=== PATIENT | male | born 1945 | race African-American/Black ===

== ENCOUNTER 2022-01-09 09:51 | Outpatient (REF) | payer MEDICARE, SELFPAY ==
[2022-01-09 15:27] LABS: Vitamin B12 774 pg/mL (200-900)
== END 2022-01-09 09:52 | disposition home or self-care (01) ==
LOC: HO.LAB 09:51
PROVIDERS: Visit Provider Psychiatry & Neurology Neurology
DX: G31.84 Mild cognitive impairment of uncertain or unknown etiology (principal)
CPT/HCPCS: 36415; 82607

== ENCOUNTER 2024-12-25 09:16 | Outpatient (AMB) | payer MEDICARE, SELFPAY ==
--- NOTE | 2024-12-25 09:18 | MHC.OFFVIS ---
Intake Visit Reasons: 6m BFT Allergies No Known Allergies Allergy (Verified 12/25/24 09:21) Medication List - Last Reconciled 12/25/24 by Evy Grimaldo CNP glipizide 10 mg PO BID losartan 100 mg PO DAILY metformin 1,000 mg PO BID pioglitazone 30 mg PO DAILY primidone 50 mg PO DAILY 90 days HPI Comments Details: 79-year-old man with DM, HTN, mild hand tremor, and mild cognitive impairment. He was doing okay. Tremor was okay with primidone. He could tell if he missed dose. No functional impairment. No difficulty eating, drinking, or swallowing. No falls. Memory was about the same. Sleep was okay. Mood was okay. [facility] Medical History (Updated 12/25/24 @ 09:21 by Evy Grimaldo CNP) Hyperlipidemia Hypertension Insomnia Diabetes mellitus MCI (mild cognitive impairment) Benign essential tremor Review of Systems Const Denies chills, Denies daytime sleepiness, Denies difficulty sleeping, Denies fatigue, Denies fever(s), Denies frequent falls, Denies headache(s), Denies increased appetite, Denies poor appetite, Denies snoring, Denies weakness, Denies weight gain and Denies weight loss Eyes Denies loss of vision ENT Denies vertigo, Denies dizziness and Denies headache(s) Card Denies chest pain at rest, Denies chest pain with activity, Denies syncope, Denies leg edema and Denies palpitations Resp Denies snoring GI Denies constipation, Denies heartburn, Denies diarrhea and Denies nausea Denies urinary frequency, Denies urinary incontinence and Denies urinary urgency Musc Denies abnormal gait, Denies numbness and Denies tingling Skin/Breast Denies dry skin and Denies rash Neuro Denies abnormal gait, Denies vertigo, Denies dizziness, Denies syncope, Denies frequent falls, Denies headache(s), Denies lack of coordination, Denies loss of vision, Denies memory loss, Denies numbness, Denies restless legs, Denies seizure-like activity, Denies tingling, Denies paresthesias, Reports tremor(s) and Denies weakness Psych Denies anxiety, Denies depression, Denies auditory hallucinations, Denies memory loss, Denies visual hallucinations and Denies suicidal ideation Endo Denies fatigue and Denies palpitations Physical Exam Const Other: General Appearance:? normal, in no acute distress. Skin:? no rashes, no significant birthmarks. Heart:? S1, S2 normal, no murmurs. Lungs:? clear anteriorly and posteriorly. Extremities:? no edema. Psych:? alert, oriented, cognitive function intact, cooperative with exam. Neuro Other: Mental Status:?Normal attention, orientation, memory and affect.? Cranial Nerves:?Pupils are equal, round and reactive to light. External occular muscles are intact. Visual dockery are full. Face is symmetrical. Facial sensations are normal. Tongue is midline. Palate elevates symmetrically. Shoulder shrugging is normal. Hearing to bedside conversation is normal. Sensory Exam:?....? Coordination:?No ataxia,?no titubation.? Gait Exam: Within normal limits. Cerebellar Signs:?[id number] is okay. Extrapyramidal System:?No tremor, rigidity with normal facial expressions.? Pronator Drift:?Not present.? Involuntary Movements:?No tremors seen.? Speech:?Normal.? Assessment & Plan Assessment & Plan (1) Tremor: Code(s): R25.1 - Tremor, unspecified Category: Medical Plan: Continue primidone 50mg 1 tablet at bedtime. (2) MCI (mild cognitive impairment): Code(s): G31.84 - Mild cognitive impairment of uncertain or unknown etiology Category: Medical Plan: Stay physically and socially active. Medications: Changed From primidone 50 mg PO DAILY 90 days 90 tabs 1RF To primidone 50 mg PO BEDTIME 90 tabs 1RF 90 days Coding Level of Care Code Est Pt Level 4 (95054) Diagnoses Tremor R25.1 MCI (mild cognitive impairment) G31.84
--- OUTSIDE RECORDS SUMMARY | 2024-12-25 10:01 | XMS_ITS | Clinical Summary ---
Author Organization [address] Address [address] [place] [phone] Phone Care Team Providers Care Butcher Supervisor Name Role Phone Quyen Espino MD Primary Care Prov ider Allergies Active Allergy Reactions Criticality Noted Date Comments Lisinopril Swelling 01/31/2012 angioedema Medications primidone (MYSOLINE) 50 mg tablet Take 50 mg by mouth daily. 06/24/2021 Active metFORMIN (GLUCOPHAGE) 500 mg tablet TAKE 2 TABLETS BY MOUTH TWICE DAILY WITH MEALS 360 tablet 1 07/20/2024 Active blood sugar diagnostic (Accu-Chek Mala Plus test strp) test strip TEST ONCE OR TWICE A DAY 200 strip 2 08/24/2024 Active Accu-Chek Softclix Lancets Use to check blood sugars once daily 100 each 08/27/2024 Active glipiZIDE (GLUCOTROL) 10 mg tablet TAKE 1 TABLET BY MOUTH TWICE DAILY WITH FOOD 180 tablet 1 10/23/2024 Active losartan (COZAAR) 100 mg tablet TAKE 1 TABLET BY MOUTH DAILY 90 tablet 1 11/09/2024 Active Active Problems Problem Noted Date Diagnosed Date Prostate cancer ([facility] V24, [facility] V28) 11/20 Overview (11/21/2023): s/p robotic radical prostatectomy 01/17, sees Dr. 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 Patient will continue with yearly Podiatric and Ophthomologic evaluations. Will continue Angiotensin Converting Enzyme Inhibitor for renal protection. Continue Metformin, Glipizide, and Actos. Will contact the patient with results of his new A1C and we will recheck a hemoglobin A1c, before his next visit. Patient will follow up in 4 months. Orders: Comprehensive metabolic panel; Future Hemoglobin A1c; Future Lipid panel with reflex to direct LDL; Future Microalbumin creatinine urine ratio; Future PPD positive, treated 09/25/2010 Hyperlipidemia with target LDL less than 100 Overview (11/21/2023): IMO update Assessment & Plan (05/05/2024 8:29 AM EDT): Assessment & Plan (01/01/2024 9:18 AM EST): Given the patients cardiac risk profile, the patient requires an LDL cholesterol of less than 70. I have instructed the patient on the principles of a low cholesterol diet and the importance of regular exercise. We will check a cholesterol profile and liver function tests before the next visit Orders: Comprehensive metabolic panel; Future Hemoglobin A1c; Future Lipid panel with reflex to direct LDL; Future Microalbumin creatinine urine ratio; Future HTN (hypertension), benign 04/28/2010 Assessment & Plan (05/05/2024 8:29 AM EDT): Assessment & Plan (01/01/2024 9:18 AM EST): The patient's antihypertensive regimen is based on their underlying medical issues. At the time of this visit, the blood pressure is well controlled on Losartan. The patient is instructed to follow a low sodium diet and to follow up in 4 months. Orders: Comprehensive metabolic panel; Future Hemoglobin A1c; Future Lipid panel with reflex to direct LDL; Future Microalbumin creatinine urine ratio; Future Rotator cuff tear 08/24/2009 Impingement syndrome of shoulder 04/17/2009 Overview (11/21/2023): Left shoulder 2009 - Subacromial osteophyte; pending MRI; seeing Mr. Schmitt Anterior subcapsular polar senile cataract 04/12 Overview (11/21/2023): Anterior subcapsular polar cataract Erectile dysfunction 11/11/2007 Helicobacter pylori infection 06/18/2005 Overview (11/21/2023): IMO update Esophageal reflux 03/14/2005 Overview (11/21/2023): Normal upper GI endoscopy on PPI medications 9.19.06. Cervicalgia 03/14/2005 Encounters Date Type Department Care Team Description 10/07/2024 8:30 AM EDT Office Visit Adult Medicine [address] [phone] Natalie Tucker PA Type 2 diabetes mellitus with diabetic cataract, without long-term current use of insulin ([facility] V24, [facility] V28) (Primary Dx); HTN (hypertension), benign; Hyperlipidemia with target LDL less than 100; Overweight (BMI 25.0-29.9) from Last 3 Months Immunizations Immunization Administration Dates Next Due PPD Test 09/22/2010 [employer] SARS-CoV-2 COVID-19, mRNA, LNP-S, preservative free 06/25/2020,05/25/2020 Pneumococcal conjugate 13 va lent (Prevnar 13, PCV13) 2mo and older 03/04/2015 Pneumococcal polysaccharide 23 valent (Pneumovax 23) 2yo and older 02/28/2012 Td Tetanus diptheria (Tdvax) 7yo and older 12/09 Tdap Tetanus diptheria acell ular pertussis (Boostrix; Adacel) 7yo and older 11/11/2007 Zoster Live 11/07/2012 Zoster recombinant (Shingrix) 19yo and older ,10/16/2022 Surgical History Surgery Date Site/Laterality Comments OTHER SURGICAL HISTORY PROCEDURE: DC PROSTECT RETROPUBIC RAD W/WO NRV SPAR W/LYMPH BX HERNIA REPAIR PROCEDURE: HISTORICAL HERNIA REPAIR/ING COLONOSCOPY 2013 PROCEDURE: DC COLONOSCOPY FLX DX W/COLLJ SPEC WHEN PFRMD; COMMENT: normal OTHER SURGICAL HISTORY 04/2015 Left PROCEDURE: DC ANES ARTHROSCOPIC TOTAL SHOULDER REPLACEMENT CATARACT EXTRACTION Right PROCEDURE: HISTORICAL CATARACT REMOVAL Medical History Medical History Date Comments Cervicalgia 03/14/2005 DX:Cervicalgia History of prostate cancer DX:Wv story of prostate cancer; COMMENT: s/p RRP 01/17, Dr. Obrien Type II or unspecified type diabetes mellitus with unspecified complication, not stated as uncontrolled DX:Type II or unspecified ty pe diabetes mellitus with unspecified complication, not stated as uncontrolled Esophageal reflux DX:Esophageal reflux HTN (hypertension), benign 04/28/2010 DX:HT N (hypertension), benign Family History Medical History Relation Name Comments No Known Problems Aunt Prostate cancer Brother 2 brothers a nd self No Known Problems Father No Known Problems Maternal Grandfather No Known Problems Maternal Grandmother No Known Problems Mother No Known Problems Other No Known Problems Paternal Grandfather No Known Problems Paternal Grandmother Breast cancer Sister 50s, b/l No Known Problems Uncle Blindness Neg Hx Cataracts Neg Hx Glaucoma Neg Hx Macular degeneration Neg Hx Strabismus Neg Hx Relation Name Status Comments Aunt Brother Father Maternal Grandfather Maternal Grandmother Mother at age 101dm, Other Paternal Grandfather Paternal Grandmother Sister Uncle Social History Tobacco Use Types Packs/Day Years Used Date Smoking Tobacco: Never Smokeless Tobacco: Never Tobacco Cessation:Counseling Given: Not Answered Alcohol Use Standard Drinks/Week Comments No 0 (1 standard drink = 0.6 oz pur e alcohol) Housing Instability Answer Date Recorde d Are you worried that in the next 2 months you may not have stable housing? No 01/01/2024 Food Access & Nutrition Answer Date Rec orded Do you have access to a vari ety of food including fruits and vegetables? Yes 01/01/2024 Access to Healthcare Answer Date Record ed Within the last 3 months, ho w many times did you visit the emergency department for your medical care? 0 01/01/2024 Financial Risk Answer Date Recorded How hard is it for you to pa y for the very basics like food, housing, medical care, and air conditioning / heating? Somewhat hard 01/01/2024 Transportation Answer Date Recorded Has the lack of transportati on kept you from meetings, work, or from getting things needed for daily living? No Has the lack of transportati on kept you from medical appointments or from getting medications? No 01/01/2024 Social Isolation Answer Date Recorded How often do you feel lonely or isolated from th ose around you? Never 01/01/2024 Food Risk Answer Date Recorded Within the past 12 months we worried whether our food would run out before we got money to buy more. Never true 01/01/2024 Within the past 12 months th e food we bought just didn't last and we didn't have money to get more. Never true 01/01/2024 Dependent Care Answer Date Recorded Do you need help finding or paying for care for your loved ones. For example, child welfare consultant or elderly care for an older adult? No 01/01/2024 Education Answer Date Recorded Do you think completing more education or training, like finishing a GED, going to college, or learning a trade, would be helpful for you? No 01/01/2024 Employment and Income Answer Date Recor ded During the last four weeks, have you been actively looking for work? No 01/01/2024 Living Situation Answer Date Recorded What is your living situation? Unrecognized valu e 01/01/2024 Sex and Gender Information Value Date Recorded Sex Assigned at Not on file Legal Sex Male 8:25 PM EST Gender Identity Not on file Sexual Orientation Not on file Obstetrics History Last Filed Vital Signs Vital Sign Reading Time Taken Comments Blood Pressure 138/66 10/07/2024 8:29 AM EDT Pulse 69 10/07/2024 8:29 AM EDT Temperature 36 C (96.8 F) 10/07/2024 8:29 AM EDT Respiratory Rate 16 10/07/2024 8:29 AM EDT Oxygen Saturation 98% 10/07/2024 8:29 AM EDT Inhaled Oxygen Concentration - - Weight 73 kg (161 lb) 10/07/2024 8:29 AM EDT Height 167.6 cm (5' 6 ) 10/07/2024 8:29 AM EDT Body Mass Index 25.99 10/07/2024 8:29 AM EDT Plan of Treatment Upcoming Encounters Date Type Department Care Team (Late st Contact Info) Description 01/12/2025 9:30 AM EST Office Visit Adult Medicine [facility] [address] [place], [place] [phone] Natalie Tucker PA [address] [place], [place] Health Maintenance Due Date Last Done Comments RSV Immunization Adult Patients (1 - 1-dose 75+ series) 2021 COVID-19 Vaccine ( season) 2024 01/16/2021, 06/25/2020, 05/25/2020, Additional history exists Diabetes: Annual Retina Eye Exam 12/19/2024 12/20/2023 Diabetes: Annual Urine Albumin-Creatinine Ratio (uACR) 12/30/2024 12/31/2023, 07/13/2022 Social Influencers of Health Screening 12/31/2024 01/01/2024 Diabetes: Blood Sugar Control Test (HGBA1C) 04/07/2025 10/05/2024, 05/04/2024, 12/31/2023, Additional history exists Diabetes: Annual GFR (Glomerular Filtration Rate) 05/04/2025 05/04/2024, 05/21/2023 Hypertension/CHF/CAD Annual BMP Blood Test 05/04/2025 05/04/2024, 05/21/2023 Falls Risk Assessment 05/05/2025 05/05/2024, 024 Medicare Annual Wellness Visit 05/05/2025 05/05/2024 Diabetes: Annual Foot Exam 10/07/2025 10/07/2024, DTaP,Tdap,and Td Vaccines (3 - Td or Tdap) 12/10/2027 12/09/2017, 11/11/2007 Cholesterol Screening (Lipid Panel) 05/04/2029 05/04/2024, 05/21/2023 Hepatitis C Screening Completed 11/03/2012 Pneumococcal Vaccine: 50+ Years Completed 03/04/2015, 02/28/2012 Zoster Vaccines Completed 01/07/2023, 06/2022, 11/07/2012 Depression Screening Completed 05/05/2024, 02/12/19 24 HIB Vaccines Aged Out No longer eligi ble based on patient's age to complete this topic HPV Vaccines Aged Out No longer eligi ble based on patient's age to complete this topic Hepatitis A Vaccines Aged Out No long er eligible based on patient's age to complete this topic Hepatitis B Vaccines Aged Out No long er eligible based on patient's age to complete this topic IPV Vaccines Aged Out No longer eligi ble based on patient's age to complete this topic Influenza Vaccine Discontinued MMR Vaccines Aged Out No longer eligi ble based on patient's age to complete this topic Meningococcal ACWY Vaccine Aged Out N o longer eligible based on patient's age to complete this topic Meningococcal B Vaccine Aged Out No l onger eligible based on patient's age to complete this topic RSV Immunization Patients Under 20 months Aged Out No longer eligible based on patient's age to complete this topic Varicella Vaccines Aged Out No longer eligible based on patient's age to complete this topic Procedures Procedure Name Priority Date/Time Associated Diagnosis Comments HEMOGLOBIN A1C Routine 10/05/2024 8:56 AM EDT Type 2 diabetes mellitus with diabetic cataract, without long-term current use of insulin ([facility] V24, [facility] V28) COMPREHENSIVE METABOLIC PANEL Routine 05/04/2024 9:07 AM EDT Type 2 diabetes mellitus with diabetic cataract, without long-term current use of insulin ([facility] V24, [facility] V28) HTN (hypertension), benign Hyperlipidemia with target LDL less than 100 LIPID PANEL WITH REFLEX TO DIRECT LDL Routine 05/04/2024 9:07 AM EDT Type 2 diabetes mellitus with diabetic cataract, without long-term current use of insulin ([facility] V24, [facility] V28) HTN (hypertension), benign Hyperlipidemia with target LDL less than 100 MICROALBUMIN CREATININE URINE RATIO Routine 12/31/2023 3:49 PM EST Type 2 diabetes mellitus with diabetic cataract ([facility] V24, [facility] V28) EXTERNAL DIABETIC RETINA EYE EXAM 12/20/2023 DIABETES FOOT EXAM Routine 09/23/2023 DEPRESSION SCREENING Routine 02/12/2023 FALLS RISK ASSESSMENT Routine 02/12/2023 HEPATITIS C SCREENING Routine 11/03/2012 from Last 3 Months or Most Recently Relevant to Health Maintenance Results * (ABNORMAL) Hemoglobin A1c (10/05/2024 8:56 AM EDT) Pathologist [facility] Hemoglobin A1C 7.9(H) <6.5 % LAB CHEMISTRY METHOD 10/05/2024 12:31 PM EDT [facility] Mean Bld Glu Estim. 180 mg/dL LAB CHEMISTRY METHOD 10/05/2024 12:31 PM EDT [facility] Blood Venous blood specimen / Unknown Venipuncture / Unknown 10/05/2024 8:56 AM EDT 10/05/2024 8:56 AM EDT us Quyen Espino MD LAB BLOOD ORDERABL ES Final Result [facility] [address] [place] [address], [place] [phone] * Lipid panel with reflex to direct LDL (05/04/2024 9:07 AM EDT) Cholesterol 198 0 - 200 mg/dL LAB CHEMISTRY METHOD 05/04/2024 2:53 PM EDT [facility] Triglycerides 30 0 - 150 mg/dL LAB CHEMISTRY METHOD 05/04/2024 2:53 PM EDT [facility] HDL 93 >=40 mg/dL LAB CHEMISTRY METHOD 05/04/2024 2:53 PM EDT [facility] LDL Calculated 99 0 - 100 mg/dL LAB CHEMISTRY METHOD 05/04/2024 2:53 PM EDT [facility] VLDL Cholesterol Antonino 6 mg/dL LAB CHEMISTRY METHOD 05/04/2024 2:53 PM EDT [facility] Non HDL Chol. (LDL+VLDL) 105 <145 mg/dL LAB CHEMISTRY METHOD 05/04/2024 2:53 PM EDT [facility] Chol/HDL Ratio 2.1 0.0 - 4.4 LAB CHEMISTRY METHOD 05/04/2024 2:53 PM EDT [facility] Blood Venous blood specimen / Unknown Venipuncture / Unknown 05/04/2024 9:07 AM EDT 05/04/2024 9:07 AM EDT us Quyen Espino MD LAB BLOOD ORDERABL ES Final Result [facility] [address] [place] [address], * (ABNORMAL) Comprehensive metabolic panel (05/04/2024 9:07 AM EDT) Sodium 135 133 - 145 mmol/L LAB CHEMISTRY METHOD 05/04/2024 2:49 PM [facility] Potassium 4.8 3.5 - 5.5 mmol/L LAB CHEMISTRY METHOD 05/04/2024 2:49 PM [facility] Chloride 102 96 - 110 mmol/L LAB CHEMISTRY METHOD 05/04/2024 2:49 PM [facility] CO2 28 21 - 32 mmol/L LAB CHEMISTRY METHOD 05/04/2024 2:49 PM [facility] Anion Gap 5 3 - 11 LAB CHEMISTRY METHOD 05/04/2024 2:49 PM [facility] Glucose 229(H) 70 - 100 mg/dL LAB CHEMISTRY METHOD 05/04/2024 2:49 PM [facility] BUN 15 5 - 25 mg/dL LAB CHEMISTRY METHOD 05/04/2024 2:49 PM [facility] Creatinine 0.97 0.70 - 1.30 mg/dL LAB CHEMISTRY METHOD 05/04/2024 2:49 PM [facility] eGFR 80 >=60 mL/min/1. 73m2 LAB CHEMISTRY METHOD 05/04/2024 2:49 PM [facility] Comment:Calculation based on the Chronic Kidney Disease Epidemiology Collaboration (CKD-EPI) equation refit without adjustment for race. BUN/Creatinine Ratio 15.5 LAB CHEMISTRY METHOD 05/04/2024 2:49 PM [facility] Calcium 9.5 8.5 - 10.5 mg/dL LAB CHEMISTRY METHOD 05/04/2024 2:49 PM [facility] AST (SGOT) 14 10 - 42 unit/L LAB CHEMISTRY METHOD 05/04/2024 2:49 PM [facility] ALT (SGPT) 22 10 - 60 unit/L LAB CHEMISTRY METHOD 05/04/2024 2:49 PM [facility] Alkaline Phosphatase 61 42 - 121 unit/L LAB CHEMISTRY METHOD 05/04/2024 2:49 PM [facility] Total Protein 7.2 6.0 - 8.0 g/dL LAB CHEMISTRY METHOD 05/04/2024 2:49 PM [facility] Albumin 3.9 3.2 - 5.0 g/dL LAB CHEMISTRY METHOD 05/04/2024 2:49 PM [facility] Total Bilirubin 0.4 0.0 - 1.4 mg/dL LAB CHEMISTRY METHOD 05/04/2024 2:49 PM [facility] Blood Venous blood specimen / Unknown Venipuncture / Unknown 05/04/2024 9:07 AM EDT 05/04/2024 9:07 AM EDT us Quyen Espino MD LAB BLOOD ORDERABL ES Final Result Performing Organization Address [facility]/ZIP Co de Phone Number [facility] [address] [place] [address], [place] [phone] * Microalbumin creatinine urine ratio (12/31/2023 3:49 PM EST) [facility] [address] Creatinine, Urine 254.0 mg/dL LAB CHEMISTRY METHOD 12/31/2023 6:40 PM EST [facility] Microalb, Ur 16.6 0.0 - 29.0 mg/L LAB CHEMISTRY METHOD 12/31/2023 6:40 PM EST [facility] Microalb/Creat Ratio 7 <30 mg/g creat LAB CHEMISTRY METHOD 12/31/2023 6:40 PM EST [facility] Urine Urine specimen obtained by clean catch procedure / Unknown Non-blood Collection / Unknown 12/31/2023 3:49 PM EST 12/31/2023 3:49 PM EST us Quyen Espino MD LAB URINE ORDERABL ES Final Result Performing Organization Address [facility] Co de Phone Number [facility] [address] [place] [address], [place] [phone] * External Diabetic Retina Eye Exam Report (12/20/2023) Anatomical Region Laterality Modality Ultrasound Provider Onbase IMG US PROCEDURES Final Resul t * Diabetes Foot Exam (09/23/2023) Pathologist [facility] Diabetes: Annual Foot Exam Abstracted Historical Provider HEALTH MAINTENANCE Final Result * Falls Risk Assessment (02/12/2023) Pathologist [facility] Falls Risk Assessment Abstracted Historical Provider HEALTH MAINTENANCE Final Result * Depression Screening (02/12/2023) Pathologist [facility] Depression Screening Abstracted Historical Provider HEALTH MAINTENANCE Final Result * Hepatitis C Screening (11/03/2012) Hepatitis C Screening Abstracted Historical Provider HEALTH MAINTENANCE Final Result from Last 3 Months or Most Recently Relevant to Health Maintenance Insurance [employer] MEDICARE Care Teams Butcher Supervisor Relationship Specialty Start Date End Date Quyen Espino MD [address] [place] [phone] PCP - General Internal Medicine 09/12/21
== END 2024-12-25 09:25 | disposition home or self-care (01) ==
LOC: HO.HSM 09:17
PROVIDERS: PCP Internal Medicine; Visit Provider Registered Nurse
DX: R25.1 Tremor, unspecified (principal); G31.84 Mild cognitive impairment of uncertain or unknown etiology
CPT/HCPCS: 99214

== ENCOUNTER → 2024-12-25 09:16 | Outpatient (BNVA) | payer MEDICARE, SELFPAY | PROVIDERS: PCP Internal Medicine; Visit Provider Registered Nurse | DX: R25.1 Tremor, unspecified (principal); G31.84 Mild cognitive impairment of uncertain or unknown etiology | CPT/HCPCS: 99212 ==